=== PATIENT | female | born 1955 | race Caucasian/White ===

== ENCOUNTER 2018-10-25 06:21 | Day surgery (SDC) | payer BC ==
[~2018-10-25] VITALS: Ht 157.5 cm; Wt 106.5 kg
[2018-10-25] VITALS (10 sets, daily range): BP systolic 114–145; BP diastolic 51–81
[~2018-10-25 06:21] MED LIST: LIDOcaine 1% 30ml preserv. free vial SQ STA
[2018-10-25] MEDS ORDERED: normal saline 1000ml 1,000 ML IV SCH ×2 (06:50→08:15)
--- NOTE | 2018-10-25 07:00 | NUR ---
DISCUSSED MODERATE SEDATION WITH PATIENT, PT REQUESTING NOT TO HAVE MODERATE SEDATION. PREFERS TO HAVE LIDOCAINE ONLY. NO IV INITIATED. MD IS MADE AWARE.
[2018-10-25] MEDS ORDERED: BUDE3CAP8 (07:16)
[2018-10-25] MEDS ORDERED: OMEP20TA5 PO (07:16)
[2018-10-25] MEDS ORDERED: LEVO150T PO (07:16)
[2018-10-25] MEDS ORDERED: RANI150T44 PO (07:16)
[2018-10-25 07:18] LABS: BASOPHILS % (AUTO) 0.7 % (0-1); EOSINOPHILS # (AUTO) 0.1 X10'3 (0-0.9); EOSINOPHILS % (AUTO) 1.7 % (0-6); HEMATOCRIT 42.1 % (35.0-45.0); HEMOGLOBIN 13.9 g/dl (12.0-16.0); LYMPHOCYTES # (AUTO) 2.1 X10'3 (1.1-4.8); LYMPHOCYTES % (AUTO) 32.2 % (21-51); MEAN CORPUSCULAR HEMOGLOBIN 27.9 PG (27.0-31.0); MEAN CORPUSCULAR VOLUME 84.6 FL (78-98); MEAN PLATELET VOLUME 9.6 FL (7.4-10.4); MONOCYTES # (AUTO) 0.6 X10'3 (0-0.9); MONOCYTES % (AUTO) 9.1 % (2-12); NEUTROPHILS # (AUTO) 3.6 X10'3 (1.8-7.7); NEUTROPHILS % (AUTO) 56.3 % (42-75); PLATELET COUNT 230 X10'3 (140-440); RED BLOOD COUNT 4.97 X10'6 (4.20-5.60); RED CELL DISTRIBUTION WIDTH 13.2 % (11.5-14.5); WHITE BLOOD COUNT 6.4 X10'3 (4.5-11.0)
[2018-10-25 07:23] LABS: ALBUMIN 3.5 G/DL (3.4-5.0); ANION GAP 10 (8-16); BLOOD UREA NITROGEN 16 MG/DL (7-18); BUN/CREATININE RATIO 22.5 (6.6-38.0); CALCIUM 9.4 MG/DL (8.5-10.1); CHLORIDE 106 MMOL/L (99-107); CREATININE 0.71 MG/DL (0.40-0.90); GLUCOSE 94 MG/DL (70-104); POTASSIUM 3.8 MMOL/L (3.5-5.1); SODIUM 142 MMOL/L (135-145); TOTAL CARBON DIOXIDE 26.3 MMOL/L (24-32); eGFR 83 ML/MIN
[2018-10-25 07:24] LABS: PROTHROMBIN TIME 11.1 SECONDS (9.0-12.0)
[2018-10-25 07:25] LABS: INR 1.1 INR
== END 2018-10-25 11:30 | disposition home or self-care (01) ==
LOC: SSTAY O 06:21
PROVIDERS: ATTEND Radiology Diagnostic Radiology
DX: K75.4 Autoimmune hepatitis (principal); E03.9 Hypothyroidism, unspecified; E66.9 Obesity, unspecified; K76.0 Fatty (change of) liver, not elsewhere classified; K83.1 Obstruction of bile duct; K21.9 Gastro-esophageal reflux disease without esophagitis; Z88.2 Allergy status to sulfonamides; Z79.899 Other long term (current) drug therapy; Z68.41 Body mass index [BMI] 40.0-44.9, adult
CPT/HCPCS: 36415; 47000; 76942; 80048; 85025; 85610; J3490; J7030